=== PATIENT | female | born 1940 | race Caucasian/White ===

== ENCOUNTER 2016-11-26 10:24 | Day surgery (SDC) | payer MEDICARE, OTHER ==
[2016-11-26] VITALS (8 sets, daily range): BP systolic 104–129; BP diastolic 56–78; PULSE 70–74; RESP 13–19; O2SAT 96–99
[~2016-11-26] VITALS: Ht 161.3 cm; Wt 61.0 kg
--- NOTE | 2016-11-26 06:41 | PCM.HPANE ---
Patient Data Surgeon Admitting Provider: Attending Provider:Arleen Nguyen MD Primary Care Physician:Mirtha Cazares Other Provider:Peg Wall Anesthesia Reason for Visit Left Breast Cancer Ht/WT & BMI Height (Feet): 5 Height (Inches): 3 Weight (Kilograms): 61.69 Body Mass Index 24.00 Allergies Uncoded Allergies: NKDA (Allergy, Unknown, 11/20/16) Past Anesthesia History Anesthesia History: Denies:: Abnormal Airway, Anesthesia Reactions, Difficult Intubation, Fam Anesthesia Reaction Diabetes History Hx Diabetes?: No MRSA MRSA: No Medications Hypertension Medication: No Home Meds Incl Beta Anna: No Reported Medications [No Home Medications] No Conflict Check 11/20/16 History HEENT History: Positive for:: Cataracts (bilateral) Denies:: Abnormal Airway Difficult Intubation Dysphagia Glaucoma (macular degeneration) Hearing Problem Sinus Problem TMJ Cardiovascular History: Denies:: AICD Abdominal Aortic Aneurism Atrial Fibrillation Chest Pain Congestive Heart Failure Edema Heart Murmur Hypertension Irregular Heartbeat Pacemaker Peripheral Vascular Rheumatic Fever Thrombophlebitis Hx of Respiratory Problem?: No Respiratory History: Denies:: Asthma COPD Emphysema Oxygen Administration Pneumonia (remote hx of ) Tuberculosis Use of C-PAP Machine Use of Inhalers / NEBS Hx Neurologic Problems?: No Neurological History: Denies:: CVA Dizziness Headaches Multiple Sclerosis Parkinson's Disease Seizures TIA Gastrointestinal History: Denies:: Cirrhosis Gall Bladder Disease Gastroesphageal Reflux Gastrointestinal Bleeding Heartburn Hepatitis Hiatal Hernia Liver Disease Hx of Problems?: No Genitourinary History: Denies:: Kidney Stones Urinary Tract Infection Female Hx: Positive for:: Problems with Breasts? (left breast current admission problem) Denies:: Currently Skin History: Denies:: History Skin Disorders? Pressure Ulcers Hx Musculoskeletal Problems?: No Musculoskeletal History: Denies:: Back Injury Fibromyalgia Joint Replacement Musculoskeletal Trauma Myasthenia Gravis Osteoarthritis Rheumatoid Arthritis Hx of Psycho/Social Problems?: No Psycho Social History: Denies:: Anxiety Hx Depression Hx Surgeries?: Yes (tonsil, melanoma exc) Hx Any Other Health Problems?: Yes Other History: Positive for:: Cancer (melanoma hx isidro, right cheek, breast- current) Denies:: Thyroid Disease History Blood Transfusions: Positive for:: Accept Blood Products? Denies:: Blood Transfusions Hx Diabetes: No Hx Alcohol Use: YesAlcoholic Drinks Per Day: 2-3 times weeklyHx Substance Use : No Smoking Status: Former Smoker Have You Smoked inLast 12 mo: No Stop/Bang S-Snoring: Do You Snore Loudly: No T-Tired: feel tired, fatigued: No O-Obsered: Observed not breath: No P-Blood Pressure: treated: No B- Body Mass Index > 35 kg/m2: No A- Age over 50: Yes N- Neck Large Circumference: No G- Gender Male: No CHRISTEN Total Score: 1 CHRISTEN Risk Assessment: Low Risk, <3 Yes Risk Assessment Category Category 1A: Patient has history of documented sleep apnea, and HAS NOT received any narcotic, sedative or anesthesia administration during this stay. Category 1B: Patient has history of documented sleep apnea, and HAS received any narcotic , sedative or anesthesia administration during this stay Category 2: Patient has SUSPECTED Obstructive Sleep Apnea, and HAS received any narcotic , sedative or anesthesia administration during this stay. Category 3: Patient has SUSPECTED Obstructive Sleep Apnea and HAS NOT received narcotic, sedative or anesthesia administration during this stay. Category 4: Outpatient in Procedural Areas with known sleep apnea or who screen positive for High Risk via the STOP/BANG questionnaire. Exam Exam General Appearance: Alert, Oriented X3, Cooperative, No Acute Distress HEENT/AIRWAY: MP 2 Lungs: Clear to Auscultation, Normal Air Movement Heart: Exam Unremarkable, Regular Rate/Rhythm, No Murmurs/Rubs/Gallops Plan Impression Patient chart reviewed, patient interviewed and anesthestic plan with risks, benefits, and alternatives discussed, and informed consent obtained. ASA Physical Status: ASA2 Mod Systemic Disease Anesthetic Plan: GA Bene/Risks/Altern/Consents: Yes HP Complete Prior to Induction: Yes Danie Gregorio MD Nov 26, 2016 06:41
[~2016-11-26 10:24] MED LIST: CeFAZolin Inj 2 GM in IV Premix 1 EACH IV ONE; Lactated Ringer's 1,000 ML IV SCH; NO HOME MEDICATIONS
[2016-11-26] MEDS ORDERED: Propofol 10,000 mCg/mL 20 mL Inj ONE (10:25)
[2016-11-26] MEDS ORDERED: fentaNYL-PF 50 mCg/mL 2 mL Inj ONE (10:25)
[2016-11-26] MEDS ORDERED: Dexamethasone 4 mg/mL Inj ONE (10:25)
[2016-11-26] MEDS ORDERED: Ondansetron 2 mg/mL 2 mL Inj ONE (10:25)
[2016-11-26] MEDS ORDERED: Lactated Ringer's 1,000 ML IV ONE (11:16)
[2016-11-26] MEDS ORDERED: CeFAZolin Inj 2 gm / 50mL D5W IV ONE (11:38)
[2016-11-26] MEDS ORDERED: Bupivacaine-MPF 0.5% 30 mL Inj INFILTRATE ONE (12:56)
[2016-11-26] MEDS ORDERED: Lactated Ringer's 1,000 ML IV SCH (12:58)
[2016-11-26] MEDS ORDERED: Lactated Ringer's 500 ML IV PRN (12:58)
[2016-11-26] MEDS ORDERED: Atropine 0.4 mg/mL Inj IVPUSH PRN (13:00)
[2016-11-26] MEDS ORDERED: HYDROmorphone 1 mg/mL Inj IVPUSH PRN (13:00)
[2016-11-26] MEDS ORDERED: hydrALAZINE 20 mg/mL Inj IVPUSH PRN (13:00)
[2016-11-26] MEDS ORDERED: Ondansetron 2 mg/mL 2 mL Inj IVPUSH PRN (13:00)
[2016-11-26] MEDS ORDERED: Dexamethasone 4 mg/mL Inj IVPUSH PRN (13:00)
[2016-11-26] MEDS ORDERED: Labetalol 5 mg/mL 4 mL Inj IV PRN (13:00)
[2016-11-26] MEDS ORDERED: EPHEDrine Sulfate 50 mg/mL Inj IVPUSH PRN (13:00)
[2016-11-26] MEDS ORDERED: fentaNYL-PF 50 mCg/mL 2 mL Inj IVPUSH PRN (13:00)
[2016-11-26] MEDS ORDERED: MetoCLOpramide 5 mg/mL 2 mL Inj IVPUSH PRN (13:00)
[2016-11-26] MEDS ORDERED: Phenylephrine 10,000 mCg/mL Inj IVPUSH PRN (13:00)
[2016-11-26] MEDS ORDERED: POLY17PO6 PO (13:57)
[2016-11-26] MEDS ORDERED: OXYC5TAB72 PO (13:57)
--- NOTE | 2016-11-26 14:17 | PCM.SURGPO ---
Immediate Operative Note Date of Surgery: Nov 26, 2016 Pre Operative Diagnosis Left Breast Cancer Post Operative Diagnosis Left Breast Cancer Procedure Wire Localized Left Partial Mastectomy and [place] Lymph node biopsy Surgeon and Digital Marketing Specialist Surgeon: Arleen Nguyen MD Assistants: Ana Lizama PAC Findings Single L axillary SLN Complications There were no periprocedural complications identified. Surgical Specimen Removed: Yes Specimen sent to Pathology: Yes Surgical Specimen description: 1. L Partial Mastectomy 2. New Medial Margin 3. L Axillary SLN Anesthetic Administered: GA Grafts, Implants: None Output, Estimated Blood Loss: 2 Blood Admin during surgery: No Attending Statement Irrigation Equipment Remover Listed was medically necessary for the successful completion of the case Arleen Nguyen MD Nov 26, 2016 14:17
--- NOTE | 2016-11-26 14:25 | PCM.ANEP1 ---
Post Anesthesia Phase 1 PACU Phase 1 Assessment Date of Service: Nov 26, 2016 Vital Signs Vital Signs Date Time Temp Pulse Resp B/P Pulse Ox O2 Delivery O2 Flow Rate FiO2 11/26/16 14:15 72 15 109/66 98 11/26/16 14:10 73 16 109/78 99 Room Air 11/26/16 14:05 70 16 125/72 99 Simple Mask 10 11/26/16 14:00 36.2 73 15 129/67 99 Simple Mask 10 11/26/16 10:41 36.6 71 19 118/62 96 Room Air Anesthetic Administered: GA Level of Alertness: Awake, talking BURKS's with Equal Strength: Yes Pain: No Nausea or Vomiting: Yes Lungs: Clear to Auscultation, Normal Air Movement Danie Gregorio MD Nov 26, 2016 14:25
--- NOTE | 2016-11-26 15:06 | PCM.ANEP2 ---
Post Anesthesia Evaluation ASA/CMS Post Anesthesia VS in Patient's Normal Range?: Yes Resp Stable; Airway Patent?: Yes CV Function & Hydration Stable: Yes Mental Status Recovered?: Yes Pain control Satisfactory?: Yes N/V Control Satisfactory?: Yes Danie Gregorio MD Nov 26, 2016 15:06
--- NOTE | 2016-11-26 15:29 | OP ---
[address] [address] OPERATIVE REPORT PATIENT: CHAVA OLSON : 1940 MR#: [id number] ADMIT: 11/26/2016 JOB ID: [id number] DATE OF SURGERY: 11/26/2016 PREOPERATIVE DIAGNOSIS(ES): Left breast cancer. POSTOPERATIVE DIAGNOSIS(ES): Left breast cancer. PROCEDURE PERFORMED: 1. Left wire-localized partial mastectomy. 2. Left axillary sentinel lymph node biopsy. SURGEON: Arleen Nguyen MD. CASH APPLICATION REPRESENTATIVE: Yojana Lizama PA-C. COMPLICATIONS: None. CONDITION OF THE PATIENT: Stable. ANESTHESIA: General. INDICATIONS: The patient is a 76-year-old lady who had a screening mammogram on October 18, 2016, which ultimately led to the diagnosis of left-sided breast cancer. She has not had any symptoms. The skin mammogram showed architectural distortion, and ultrasound showed a 0.7 x 0.7 x 1 cm, irregular mass at 2 o'clock middle depth, 3 cm from the nipple. 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 After discussion of the risks, benefits, and alternatives, she is here today for wire-localized left partial mastectomy with left axillary sentinel lymph node biopsy. PROCEDURE DETAILS: [facility], underwent wire localization of the clip and then had radial chloride injection in Day Surgery area. She was then brought to the operating room and underwent smooth induction of general anesthesia. The left breast and axilla were prepped and draped in the usual sterile fashion. Surgical time-out was undertaken using safety checklist, and all were in agreement. A surgical time-out was undertaken using safety checklist, and all were in agreement. I began by making a curvilinear incision medial to the skin entry site for the localization of wire based on the mammographic localization imaging. I raised the skin flap towards the wire entry site and delivered the wire into the surgical field. After that, I circumferentially dissected a spherical specimen of breast tissue centered around the wire with electrocautery. This dissection extended all the way posterior to the chest wall and medially passed 12 o'clock. Before I delivered the specimen I marked with a silk short stitch superior and long stitch lateral and got a specimen radiograph from the partial mastectomy specimen. On that image, the clip placed at the time of the breast biopsy was visualized but it appeared to be close to the medial margin, prompting me to take an additional medial margin again sharply with electrocautery, the short stitch marking superior and long stitch marking a new medial margin. After ensuring it had good hemostasis, I used a gamma probe to pick the area of maximum activity immediately posterior to the pectoralis and made a skin incision. The skin and subcutaneous tissues were sharply divided and entered the axilla bluntly. I continued to use the gamma probe to identify the node with the maximum activity, which was dissected circumferentially with sharp electrocautery controlling any vessels and lymphatics with clips. The ex vivo count of the maximum count of this node was 571. After this, the rest of the background activity in the axilla was found to be less than 10% of this in the 30s and 40s more consistent with scattered from the injection site. After ensuring hemostasis, we irrigated the wounds and closed the skin in layers of 3-0 Vicryl, followed by 4-0 Monocryl subcuticular. Dermabond was applied as a dressing. Patient was recovered from anesthesia and was taken to the recovery room in stable condition.
--- NOTE | 2016-11-26 16:42 | DRSVH ---
PROCEDURE: NM SENTINEL NODE INJECTION ONLY, LEFT BREAST RADIOPHARMACEUTICAL: 0.5 mCi Millipore filtered Tc-99m sulfur colloid. INDICATIONS: BREAST CANCER PROCEDURE: The indications, alternatives, benefits, risks, and complications of the procedure were explained to the patient. Written informed consent was obtained and placed in the chart. The area around the nip ple was prepped and draped in a sterile fashion. Tc-99m sulfur colloid was injected in the outer edg e of the areola in the left breast. No image was obtained. IMPRESSION: Administration of radiotracer into the left breast periareolar region for intra-operativ e sentinel lymph node localization. Dictated by: Don Ivy M.D. on 11/26/2016 at 16:40 Approved by: Don Ivy M.D. on 11/26/2016 at 16:40
--- NOTE | 2016-11-27 07:12 | DRSVH ---
SPECIMEN LEFT BREAST: 11/26/2016 CLINICAL: Breast specimen. Correlation is made to exams dated: 11/26/2016 localization, 11/06/2016 mammogram, 10/30/2016 mammogram, and 10/18/2016 mammogram - [facility]. A specimen was imaged for the previous biopsy site located in the left breast at 2 o'clock anterior depth. IMPRESSION: SPECIMEN The imaged specimen includes a biopsy clip and the distal portion of the localization wire. This exam was interpreted at Station ID: [id number]. Irma culp/heath:11/26/2016 17:00:42 copy to: DOMINGA KOENIG Additional referring physicians: KATHLEEN ELIZALDE, DOMINGA EARL
[2016-11-27] MEDS ORDERED: Polyethylene Glycol (PEG) 17 Gm Powder PO SCH (08:30)
--- NOTE | 2016-11-28 16:50 | PATH ---
SURGICAL PATHOLOGY Attending Physician:Arleen Nguyen MD CASE STATUS: Signed Out PATIENT NAME: CHAVA OLSON PID: [id number] : 1940 DATE COLLECTED:11/26/2016 00:00 SPECIMEN: 1: Breast Mass, Excision (Wire Localization) 2: Breast Margin 3: Lymph Node, Biopsy CLINICAL HISTORY: LEFT BREAST CANCER 1). LEFT PARTIAL MASTECTOMY 2). MEDIAL MARGIN 3). LEFT AXILLARY NODE #1 FINAL DIAGNOSIS: 1. LEFT PARTIAL MASTECTOMY: INVASIVE CARCINOMA OF THE BREAST. PROCEDURE: WIRE LOCALIZED EXCISIONAL BIOPSY. LYMPH NODE SAMPLING: SEE PART 3. SPECIMEN LATERALITY: LEFT. TUMOR SITE: 2 O' CLOCK. TUMOR SIZE: 9 MM MAXIMUM EXTENT, MEASURED ON MICROSCOPIC SLIDE. HISTOLOGIC TYPE: INVASIVE DUCTAL CARCINOMA, NO SPECIAL TYPE. HISTOLOGIC GRADE: FANNY HISTOLOGIC SCORE Glandular/Tubular differentiation: Score 2. Nuclear Pleomorphism: Score 1. Mitotic Rate: Score 1. Overall Grade: Grade 1 (4/9). TUMOR FOCALITY: SINGLE FOCUS. DUCTAL CARCINOMA IN SITU: NOT IDENTIFIED. MARGINS: INVASIVE CARCINOMA: Anterior: 5 MM. Posterior: 8 MM. Superior: GREATER THAN 10 MM. Inferior: GREATER THAN 10 MM. Medial: POSITIVE (SEE PART 2 FOR ADDITIONAL MEDIAL MARGIN TISSUE). Lateral: GREATER THAN 10 MM. LYMPH-VASCULAR INVASION: NOT IDENTIFIED. PATHOLOGIC STAGING (AJCC, 7th ed., 2010): PRIMARY TUMOR: pT1b. REGIONAL LYMPH NODES: pN0. ADDITIONAL PATHOLOGIC FINDINGS: Specify: CORE BIOPSY SITE IDENTIFIED IN AREA OF TUMOR. ANCILLARY STUDIES: Biomarkers Performed Previously on Case: [facility] CASE [id number]. 2.MEDIAL MARGIN: 4 MM FOCUS OF RESIDUAL INVASIVE DUCTAL CARCINOMA. THE NEW MEDIAL MARGIN IS NEGATIVE FOR CARCINOMA (6 MM FROM INVASIVE CARCINOMA). 3.LEFT AXILLARY NODE: ONE LYMPH NODE IDENTIFIED, NEGATIVE FOR METASTATIC CARCINOMA. ICD10 CODE C50.912 GROSS DESCRIPTION: The specimens are received in formalin, labeled with the patient's name, and sublabeled as the following: (1) left partial mastectomy, long: lateral, short: superior; (2) medial margin, short: superior, long: new medial margin; (3) left axillary node #1. (1) The specimen consists of a piece of breast tissue (2.0 cm AP, 4.5 cm SI, 4.2 cm ML) with no overlying skin. The specimen is oriented with 2 black sutures (short-superior, long-lateral). A localization wire is present. The specimen is serially sectioned SI into 17 slices with the medial and lateral resection margins slices #1 and #17 respectively. The breast tissue is densely fibrous and contains a carrington-white solid firm well-circumscribed nodule (0.7 x 0.4 x 0.2 cm) within slice #10. The nodule is 0.9 cm from the anterior, 0.8 cm from the posterior, 2.4 cm from the superior, 1.7 cm from the inferior, 1.4 cm from the medial, and 1.9 cm from the lateral resection margins. No other nodules or masses or lesions are identified. Ink code: purple-anterior; yellow-posterior; black-superior; orange-inferior; green-medial; blue-lateral. Section code: (1A) superior resection margin, perpendicularly sectioned, entirely submitted; (1B) slice #2, entirely submitted; (1C) slice #3, entirely submitted; (1D) slices #4 and #5, entirely submitted; (1F) slice #6, bisected AP, posterior half submitted; (1G) slice #7, bisected AP, posterior half submitted; (1H) slice #9, bisected AP, posterior half submitted; (1I-1J) slice #10, bisected and submitted ML, entirely submitted; (1K) slice #11, entirely submitted; (1L-1M) slice #12, bisected and submitted ML, entirely submitted; (1N-1O) slice #13, bisected and submitted ML, entirely submitted; (1P) slice #14, entirely submitted; (12) slice #15, entirely submitted; (1R) slice #16, entirely submitted; (1S) inferior resection margin, perpendicularly sectioned, entirely submitted. (2) The specimen consists of a piece of breast tissue (3.5 cm AP, 3.7 cm SI, 0.7 cm ML) with no overlying skin. The specimen is oriented with 2 black sutures (short-superior, long-new medial margin). No localization wire is present. The breast tissue is densely fibrous with no nodules, masses or lesions identified. Ink code: yellow-anterior; purple-posterior; black-superior; orange-inferior; green-lateral; blue-medial. Section code: (2A-2E) breast tissue, serially sectioned and submitted SI. Specimen entirely submitted. (3) The specimen consists of a lymph node (1.7 x 1.4 x 0.4 cm) with attached adipose tissue. Section code: (3A-3B) one lymph node, serially sectioned. Specimen entirely submitted. Note: Approximate total fixation time in formalin for all specimens-28 hours calculated using a collection date of November 26, 2016 with times in fixative of 1320 and 1325. 11/27/16 JM MICRO DESCRIPTION: See diagnosis. ICD-9 CODES: CPT CODES: 1: 34466 2: 47234 3: 07210 Electronically Signed Out Alice Jimenez MD [facility] [address], [place] [address] Technical component performed at [facility] [address], [place], [address]
[2017-02-12] MEDS ORDERED: TAMO20TA4 PO (16:09)
== END 2016-11-26 23:59 | disposition home or self-care (01) ==
LOC: SAS 10:24
PROVIDERS: ATTEND Student in an Organized Health Care Education/Training Program
DX: C50.912 Malignant neoplasm of unspecified site of left female breast (principal); Z17.0 Estrogen receptor positive status [ER+]; Z87.891 Personal history of nicotine dependence
CPT/HCPCS: 19301; 38525; 38792; 76098; 88305; 88307; A9541; J1100; J2250; J2405; J3010; J7120